=== PATIENT | female | born 1975 | race African-American/Black ===

== ENCOUNTER 2018-02-18 00:44 | Emergency (ER) | payer OTHER ==
[~2018-02-18] VITALS: Ht 157.5 cm; Wt 53.5 kg
[2018-02-18] MEDS ORDERED: ADVIL200 M1 (01:01)
[2018-02-18] MEDS ORDERED: KETO10TA2 PO (01:59)
[2018-02-18] MEDS ORDERED: ORPHENADRINE C100 MG PO (01:59)
== END 2018-02-18 02:07 | disposition home or self-care (01) ==
LOC: ER 00:44
DX: S43.491A Other sprain of right shoulder joint, initial encounter (principal); X50.0XXA Overexertion from strenuous movement or load, initial encounter; Y93.F9 Activity, other caregiving; Y92.230 Patient room in hospital as the place of occurrence of the external cause; Y99.8 Other external cause status